=== PATIENT | female | born 1960 | race African-American/Black ===

== ENCOUNTER 2018-05-31 20:09 | Inpatient (IN) | payer OTHER, MEDICAID ==
[~2018-05-31] VITALS: Ht 154.9 cm; Wt 82.1 kg
--- NOTE | ~2018-05-31 | HEMODYNAMI ---
PATIENT:VICTOR MANUEL KWON MEDICAL RECORD: [id number] : 58 [id number] ADMISSION DATE: 05/31/18 Generatedon:06/02/201814:23 Patient name: VICTOR MANUEL KWON Patient #: [id number] SSN: : 1960 Date of study: 06/02/2018 Page: Of Hemodynamic Procedure Report Patient Data Patient Demographics Procedure consent was obtained First Name: VICTOR MANUEL Gender: Female Last Name: CHER : 1960 Patient #: [id number] Age: 57 year(s) Race: Black Additional ID: [id number] Contact details [address]: [address] [place] [address] [place] State: [place] City: [place] Zip code: [address] Past Medical History Allergies Allergen Reaction Date Comments Reported Codeine 06/02/2018 Admission Admission Data Admission Date: 05/31/2018 Admission Time: 22:07 Room #: D.2112 Lab Results Lab Result Date: 06/02/2018 Lab Result Time: 0:00 Biochemistry Name Units Result Min Max BUN mg/dl 35 --(----)-* 7 18 Creatinine mg/dl 1.9 --(----)-* 0.6 1.3 CBC Name Units Result Min Max Hemoglobin g/dl 11 *-(----)-- 13.5 17.5 Procedure Procedure Types Cath Procedure Diagnostic Procedure C [facility] w/Coronaries Cardioversion External Procedure Description Procedure Date Procedure Date: 06/02/2018 Procedure Start Time: 14:07 Procedure End Time: 14:18 Procedure Staff Name Function Patrick Jeronimo MD Performing Physician Charity Black RT Monitor Clyde Leone RT Scrub Phillip Parson RN Nurse Emiliano Brown CRNA Additional personnel Procedure Data Cath Procedure Fluoroscopy Diagnostic fluoroscopy Total fluoroscopy Time: 0.7 time: 0.7 min min Diagnostic fluoroscopy Total fluoroscopy dose: 170 dose: 170 mGy mGy Contrast Material Contrast Material Type Amount (ml) Isovue 300 49 Entry Location Entry Primary Successful Side Size Upsize Upsize Entry Closure Succes sful Closure Location (Fr) 1 (Fr) 2 (Fr) Remarks Device Remarks Femoral Right 5 Fr Exoseal artery Estimated blood loss: 5 ml Diagnostic catheters Device Type Used For End Catheter Placement MULTIPACK JL 4.0 5Fr Procedure catheter MULTIPACK 3DRC 5Fr Procedure catheter MULTIPACK Pigtail 5 Fr Procedure catheter Procedure Complications No complications Procedure Medications Medication Administration Route Dosage Oxygen etCO2 Nasal cannula 6 l/min Heparin Flush Bag added to field 1 bags (1000units/500ml NS) 0.9% NaCl I.V. 100 ml/hr Lidocaine 2% added to field 20 Refer to Anesthesia Notes for Sedation Medications Hemodynamics Rest HGB: 11 (g/dl) Heart Rate: 100 (bpm) Pressure Samples Time Site Value (mmHg) Purpose Heart Use Rate(bpm) 14:11 LV 70/18,16 Snapshot 92 Gradients Valve Time Site Site Mean SEP/DFP Peak To Heart Use 1 2 (mmHg) (sec/min) Peak Rate (mmHg) (bpm) Aortic 14:11 LV AO 83 Snapshots Pre Cath Intra NCS Post Cath Vital Signs Time Heart Resp SPO2 etCO2 NIBP Rhythm Pain Sedation Rate (ipm) (%) (mmHg) (mmHg) Status Level (bpm) 13:51:15 82 17 97 0 104/74(96) A-Fib 0 (11) 10(A) , No pain 13:55:27 115 16 100 9 99/88(92) A-Fib 0 (11) 10(A) , No pain 13:59:39 90 17 96 0 103/72(81) A-Fib 0 (11) 10(A) , No pain 14:03:51 88 17 100 0.7 94/76(82) A-Fib 0 (11) 10(A) , No pain 14:08:09 82 17 99 0 85/52(74) A-Fib 0 (11) 10(A) , No pain 14:12:21 73 16 96 0 83/51(74) A-Fib 0 (11) 10(A) , No pain 14:15:48 76 17 97 0 83/63(73) A-Fib 0 (11) 10(A) , No pain 14:19:35 81 19 98 0 81/44(63) A-Fib 0 (11) 10(A) , No pain 14:21:24 71 15 100 0 85/59(79) A-Fib 0 (11) 10(A) , No pain 14:23:12 79 16 100 0 86/34(59) A-Fib 0 (11) 10(A) , No pain Medications Time Medication Route Dose Verified Delivered Reason Notes Effe ctiveness by by 13:58:52 Oxygen etCO2 6 Patrick Phillip Per Nasal l/min St Noé Parson RN physician cannula 13:59:00 Heparin Flush added 1 Patrick Phillip used for Bag to bags St Noé Parson RN procedure (1000units/500ml field REZA NS) 13:59:09 0.9% NaCl I.V. 100 Patrick Phillip Per ml/hr St Noé Parson RN physician 13:59:34 Lidocaine 2% added 20ml Patrick Phillip Per to vial St Noé Parson RN physician field REZA 14:00:58 Refer to Patrick Phillip Per Anesthesia Notes St Noé Parson RN physician for Sedation Medications Procedure Log Time Note 13:20:48 Clyde Leone RT(R) sent for patient. Start room use. 13:24:15 Signed procedure consent form obtained from patient. 13:24:16 Diagnostic Cath status Elective 13:24:17 Time tracking: Regular hours (M-F 7:00 - 5:00) 13:24:20 Plan of Care:Hemodynamics will remain stable., Cardiac rhythm will remain stable., Comfort level will be maintained., Respiratory function will remain adequate., Patient/ family verbilizes understanding of procedure., Procedure tolerated without complication., Recovers from procedure without complications.. 13:30:23 Patient allergic to Codeine 13:30:31 H&P Date Dictated: 06/01/2018 Within 30 days and on chart.. 13:31:03 Lab Result : BUN 35 mg/dl 13:31:03 Lab Result : Creatinine 1.9 mg/dl 13:31:03 Lab Result : Hemoglobin 11 g/dl 13:37:21 Patient received from Med II to CCL 1 Alert and oriented. Tansferred to table in Supine position. 13:37:22 Warm blankets applied, and ramu hugger turned on for patient comfort. 13:37:22 Correct patient and procedure confirmed by team. 13:37:23 ECG and BP/O2 sat monitors applied to patient. 13:50:03 Vital chart was started 13:50:07 Baseline sample Acquired. 13:50:13 Rhythm: atrial fibrillation 13:50:14 Full Disclosure recording started 13:50:14 Pre-procedure instructions explained to patient. 13:50:15 Pre-op teaching completed and patient verbalized understanding. 13:50:17 Family in patients room. 13:50:23 Patient NPO since Midnight. 13:58:52 Oxygen 6 l/min etCO2 Nasal cannula was administered by Phillip Parson RN; Per physician; 13:59:00 Heparin Flush Bag (1000units/500ml NS) 1 bags added to field was administered by Phillip Parson RN; used for procedure; 13:59:09 0.9% NaCl 100 ml/hr I.V. was administered by Phillip Parson RN; Per physician; 13:59:34 Lidocaine 2% 20ml vial added to field was administered by Phillip Parson RN; Per physician; 14:00:58 Refer to Anesthesia Notes for Sedation Medications was administered by Phillip Parson RN; Per physician; 14:02:54 Is patient on blood thinner?No 14:02:54 Patient diabetic? Yes. 14:02:55 If diabetic: On Metformin? No 14:02:58 Patient not . Patient is over age 55. 14:03:00 Previous problem with sedation/anesthesia? No ? 14:03:01 Snore? Yes 14:03:03 Sleep apnea? No 14:03:04 Deviated septum? No 14:03:05 Opens mouth fully? Yes 14:03:05 Sticks out tongue? Yes 14:03:07 Airway obstruction? No ? 14:03:09 Dentures? No ? 14:03:12 Pre procedure: right dorsailis pedis pulse 1+ Palpable, but thready & weak; easily obliterated 14:03:22 unable to go radial due to IV placement 14:03:33 IV patent on arrival in right wrist with 0.9% NaCl at [facility]. 14:03:35 Lab results completed and on chart. 14:03:40 Right groin area was prepped with chlora-prep and draped in sterile fashion 14:03:41 Alarms reviewed by R. N. 14:03:41 Sharps counted by scrub and verified by R.N. 14:03:47 --------ALL STOP TIME OUT------ 14:03:47 Final Timeout: patient, procedure, and site verified with staff and physician. All members of the team are in agreement. 14:03:48 Right groin site verified by team. 14:03:51 Fire Safety Assessment: A--An alcohol-based skin anteseptic being used preoperatively., C--Open oxygen or nitrous oxide is being used., D--An ESU, laser, or fiber-optic light is being used. 14:03:53 Physical assessment completed. ASA score P 2 - A patient with mild systemic disease as per Patrick Jeronimo MD. 14:03:58 Sedation plan: TIVA Medication:Propofol 14:04:01 Use device set Femoral Dx 14:04:03 Zero performed for pressure channel P1 14:04:05 ACIST Syringe (12636) opened to sterile field. 14:04:06 Bag Decanter (2002S) opened to sterile field. 14:04:07 ACIST Hand Control (79036) opened to sterile field. 14:04:08 ACIST Manifold (26922) opened to sterile field. 14:04:08 Tegaderm 4 x 4 (1626W) opened to sterile field. 14:04:09 Medline Cath Pack ([id number]) opened to sterile field. 14:04:10 DIAGNOSTIC WIRE .035 260cm J wire (409847) opened to sterile field. 14:04:10 DIAGNOSTIC Multipack 5Fr catheter set ([id number]) opened to sterile field. 14:04:11 SHEATH 5FR Temple (KBO893) opened to sterile field. 14:04:55 Emiliano Brown CRNA present and monitoring patient for TIVA. 14:05:00 Procedure started. 14:05:10 Quick Combo opened to sterile field. 14:05:14 Quick combo pads placed on patients chest and back. 14:05:17 Defibrillator synced and charged to 200 Joules. 14:05:44 Shock delivered. 14:05:51 Unsuccessful cardioversion. 14:05:53 Defibrillator synced and charged to 300 Joules. 14:06:23 Unsuccessful cardioversion. 14:06:57 WILL PROCEED TO HEART CATH 14:07:03 Local anesthetic to right femoral artery with Lidocaine 2% by Patrick Jeronimo MD.INITIAL ACCESS ONLY 14:07:57 A 5 Fr sheath was inserted into the Right Femoral artery 14:08:36 A MULTIPACK JL 4.0 5Fr catheter was advanced over the wire and used for Procedure. 14:09:22 LCA angiography performed. 14:09:50 Catheter removed. 14:09:52 A MULTIPACK 3DRC 5Fr catheter was advanced over the wire and used for Procedure. 14:10:15 RCA angiography performed. 14:10:22 Catheter removed. 14:10:33 A MULTIPACK Pigtail 5 Fr catheter was advanced over the wire and used for Procedure. 14:11:00 LV gram done using JAMISON 14:11:10 Injector settings: Ml/sec: 10, Volume: 20, 14:11:21 LV hemodynamics recorded. 14:11:39 EF : 20 % 14:11:49 Catheter removed. 14:12:02 EXOSEAL 5Fr (EX500) opened to sterile field. 14:12:35 Sheath removed intact; hemostasis achieved with Exoseal to the Right Femoral artery. 14:12:38 Procedure ended.(Physican Out) 14:13:19 Fluoroscopy time 00.70 minutes. 14:13:29 Fluoroscopy dose: 170 mGy 14:13:29 Flurop Dose total: 170 14:13:32 Contrast amount:Isovue 300 49ml. 14:13:37 Sharps counted by scrub and verified by R.N. 14:13:40 Post-op/insertion site Right Femoral artery dressed using a 4 x 4 and Tegaderm. 14:13:43 Post-procedure physical assessment completed. ASA score P 2 - A patient with mild systemic disease as per Patrick Jeronimo MD. 14:13:50 Post procedure rhythm: unchanged. 14:13:52 Estimated blood loss: 5 ml 14:13:54 Post procedure instruction explained to patient.Patient verbalizes understanding. 14:13:55 Patient needs reinforcement of post procedure teaching. 14:15:29 Procedure and supply charges have been captured, reviewed, submitted and are correct. 14:15:31 Procedure Complication : No complications 14:15:38 See physician's report for complete and final results. 14:15:39 Report given to PCU. 14:15:42 Patient transfered to PCU with Bed. 14:18:18 Vital chart was stopped 14:18:20 Procedure ended. 14:18:20 Full Disclosure recording stopped 14:18:26 End room use (Document Last) Device Usage Item Name Manufacture Quantity Catalog Hospital Part Current Minima l Lot# / Number Charge Number Stock Stock Serial# Code ACELIZABETH Acist 1 35429 332278 819830 835487 20 Syringe Medical (76585) Systems Inc Bag Microtek 1 2001S 268951 69059 738999 5 Decanter Medical Inc. (2001S) ACIST Hand Acist 1 02064 831283 672191 421666 5 Control Medical (62542) Systems Inc ACIST Acist 1 10658 837780 816768 460035 5 Manifold Medical (20983) Systems Inc Tegaderm 4 3M 1 1626W 275971 225984 596114 5 x 4 (1626W) Medline Medline 1 [id number] 254529 38158 910965 5 Cath Pack ([id number]) DIAGNOSTIC St Jose Manuel 1 816087 325422 579499 506876 30 WIRE .035 260cm J wire (305705) DIAGNOSTIC Cardinal 1 YM5257 853875 83538 111568 30 Multipack Health 5Fr catheter set (YV9643) SHEATH 5FR Terumo 1 JJE690 458011 024850 496177 5 Temple (ANI017) Quick Combo [employer] Systems 1 80982-253148 592408 997793 559433 5 MULTIPACK Cardinal 1 489289 5 JL 4.0 5Fr Health catheter MULTIPACK Cardinal 1 035241 5 3DRC 5Fr Health catheter MULTIPACK Cardinal 1 953525 5 Pigtail 5 Health Fr catheter EXOSEAL 5Fr Cardinal 1 EX500 714911 729290 566328 10 (EX500) Health Signature Audit [place] Stage Time Signature Unsigned Intra-Procedure 06/02/2018 Charity Black 2:23:43 PM RT(R) Signatures Monitor : Charity Black Signature : RT Date : Time : [place] [id number] [place] [id number]
[2018-05-31] MEDS ORDERED: LIPITOR10 MG PO (20:15)
[2018-05-31] MEDS ORDERED: ASPIRIN81 MG PO (20:16)
[2018-05-31] MEDS ORDERED: LISINOPRIL5 MG PO (20:16)
[2018-05-31] MEDS ORDERED: RANITIDINE HCL150 M1 PO (20:16)
[2018-05-31] MEDS ORDERED: QVAR REDIHALE10.6 G1 INH (20:16)
[2018-05-31] MEDS ORDERED: CLARITIN 10 MG10 MG PO (20:16)
[2018-05-31] MEDS ORDERED: ELIQUIS5 MG PO (20:16)
[2018-05-31] MEDS ORDERED: NORVASC5 MG PO (20:17)
[2018-05-31] MEDS ORDERED: GLUCOPHAGE1000 MG PO (20:17)
[2018-05-31] MEDS ORDERED: BETAPACE 80 MG80 MG PO (20:17)
[2018-05-31] MEDS ORDERED: NEURONTIN600 MG PO (20:17)
[2018-05-31 20:49] LABS: BASOPHILS 0.2 % (0-2); EOSINOPHILS 0.9 % (0-7); HEMATOCRIT 34.2 % (36.0-48.0); HEMOGLOBIN 11.8 g/dL (12-16); IMMATURE GRANULOCYTES 0.1 % (0-5); LYMPHOCYTES 22.5 % (15-50); MCH 28.6 pg (26.0-34.0); MCHC 34.5 g/dL (31.0-37.0); MEAN PLATELET VOLUME 9.7 fL (7.4-10.4); MONOCYTES 10.5 % (2-11); NEUTROPHILS 65.8 % (40-80); PLATELET COUNT 197 10x3/uL (130-400); RBC 4.12 10x6/uL (4.00-5.40); RDW 17.1 % (11.5-14.5); WBC 9.3 10x3/uL (4.8-10.8)
[2018-05-31 20:58] LABS: APTT 37.6 SECONDS (22.8-39.4); INR 1.76 (0.85-1.17); PROTIME 19.9 SECONDS (11.6-15.0)
[2018-05-31 21:00] VITALS: BP 120/77
--- NOTE | 2018-05-31 21:00 | NUR ---
PT TRANSFERRED FROM [facility], [facility]. DENIES CHEST PAIN AT THIS TIME. CARDIZEM INFUSING AT 5MG , NS INFUSING AT 125ML.
[2018-05-31 21:04] LABS: ALBUMIN 3.2 g/dL (3.4-5.0); ALKALINE PHOSPHATASE 133 U/L (46-116); ALT (SGPT) 123 U/L (10-68); BILIRUBIN - TOTAL 2.53 mg/dL (0.2-1.3); CALC OSMOLALITY 290 mosm/kg (275-300); CALCIUM 8.7 mg/dL (8.5-10.1); CARBON DIOXIDE 19.3 mmol/L (21.0-32.0); CHLORIDE - SERUM 105 mmol/L (98-107); CREATININE - SERUM 2.1 mg/dL (0.6-1.3); GLUCOSE 100 mg/dL (74-106); POTASSIUM - SERUM 4.2 mmol/L (3.5-5.1); PROTEIN - SERUM 6.4 g/dL (6.4-8.2); SODIUM 142 mmol/L (136-145); UREA NITROGEN 36 mg/dL (7-18); eGFR NON AFRICAN AMERICAN 26 mL/min (90-120)
[2018-05-31 21:18] LABS: CREATINE KINASE 172 UL (21-215); MAGNESIUM - SERUM 1.7 mg/dL (1.8-2.4)
[2018-05-31 21:19] LABS: TROPONIN-I 0.185 ng/mL (0.000-0.060)
[2018-05-31 22:00] VITALS: BP 123/81
--- NOTE | 2018-05-31 22:40 | NUR ---
FAMILY TO BEDSIDE.
--- NOTE | 2018-05-31 23:20 | NUR ---
RECEIVED FROM ER VIA STRETCHER. ALERT/ORIENTED X 4. AMBULATED WITH STEADY GAIT. IV IN RT HAND WITH CARDIZEM AT 5ML/HR. REQUESTED A DIET SODA. FAMILY PRESENT IN ROOM. NO QUESTIONS OR CONCERNS VOICED.
[2018-06-01] VITALS (7 sets, daily range): BP systolic 116–132; BP diastolic 48–85; Ht 154.9 cm; Wt 82.1 kg
--- NOTE | 2018-06-01 00:30 | NUR ---
REQUESTED ANOTHER BLANKET. UNHOOKED FROM IV TO AMBULATE TO THE BATHROOM. NO OTHER NEEDS VOICED.
[2018-06-01 04:11] LABS: BASOPHILS 0.2 % (0-2); EOSINOPHILS 1.1 % (0-7); HEMATOCRIT 33.3 % (36.0-48.0); HEMOGLOBIN 11.2 g/dL (12-16); IMMATURE GRANULOCYTES 0.1 % (0-5); LYMPHOCYTES 17.2 % (15-50); MCHC 33.6 g/dL (31.0-37.0); MCV 83.3 fL (80.0-100.0); MONOCYTES 12.4 % (2-11); PLATELET COUNT 194 10x3/uL (130-400); RDW 17.1 % (11.5-14.5); WBC 8.4 10x3/uL (4.8-10.8)
[2018-06-01 04:57] LABS: ANION GAP 19.3 mmol/L (8-16); CALCIUM 8.4 mg/dL (8.5-10.1); CARBON DIOXIDE 21.7 mmol/L (21.0-32.0); CREATININE - SERUM 2.4 mg/dL (0.6-1.3); MAGNESIUM - SERUM 1.5 mg/dL (1.8-2.4); PHOSPHOROUS 4.7 mg/dL (2.5-4.9)
[2018-06-01 05:04] LABS: TROPONIN-I 0.146 ng/mL (0.000-0.060)
--- NOTE | 2018-06-01 05:48 | NUR ---
RESTING WITH EYES CLOSED, LYING ON LEFT SIDE SNORING LIGHTLY. RR EVEN U/L. HAS CL IN REACH.
--- NOTE | 2018-06-01 07:15 | NUR ---
MORNING ASSESSMENT COMPLETE. SEE ASSESSMENT FLWOSHET FOR FURTHER DETAILS. PT LYING IN BED AAO X4 TO PERSON, PLACE, TIME, AND SITUATION. DAUGHTER AT BEDSIDE. DENIES NEEDS AT THIS TIME. CL IN REACH
--- NOTE | 2018-06-01 09:08 | NUR ---
ROUNDING ON PATIENTS THIS AM. IN PATIENT CHART TO HELP ANSWER SOME QUESTIONS THE PATIENT AND FAMILY HAVE.
[2018-06-01 17:13] LABS: % SATURATION 7 % (15-55); IRON 22 ug/dl (35-150); TOTAL IRON BIND CAPACITY 277 ug/dl (260-445); UNSAT IRON BIND CAPACITY 255 ug/dl (150-375)
--- NOTE | 2018-06-01 20:01 | NUR ---
RESUMING CARE. PT LAYING IN BED A&O RT HAND IV RUNNING CARDIZEM DRIP @5 AND NS @100 NO C/O OF PAIN OR DISTRESS AT THIS TIME CALL IN REACH WILL CONT TO MONITOR
[2018-06-02] VITALS: BP 100/76
--- NOTE | 2018-06-02 04:05 | NUR ---
RN NOTE: PATIENT RESTING COMFORTABLY IN BED. RESPIRATIONS ARE EVEN AND UNLABORED. NO S/S OF DISTRESS. CALL LIGHT WITHIN REACH. WILL CPOC.
[2018-06-02 05:20] VITALS: BP 107/76
[2018-06-02 05:31] LABS: BASOPHILS 0.1 % (0-2); EOSINOPHILS 3.5 % (0-7); HEMATOCRIT 33.5 % (36.0-48.0); IMMATURE GRANULOCYTES 0.2 % (0-5); LYMPHOCYTES 17.1 % (15-50); MCH 27.9 pg (26.0-34.0); MCHC 32.8 g/dL (31.0-37.0); MEAN PLATELET VOLUME 9.7 fL (7.4-10.4); MONOCYTES 9.3 % (2-11); NEUTROPHILS 69.8 % (40-80); PLATELET COUNT 199 10x3/uL (130-400); RBC 3.94 10x6/uL (4.00-5.40); RDW 17.4 % (11.5-14.5); WBC 9.4 10x3/uL (4.8-10.8)
[2018-06-02 05:51] LABS: ANION GAP 14.3 mmol/L (8-16); CALCIUM 8.1 mg/dL (8.5-10.1); CARBON DIOXIDE 23.7 mmol/L (21.0-32.0); CREATININE - SERUM 1.9 mg/dL (0.6-1.3)
--- NOTE | 2018-06-02 07:28 | NUR ---
REPORT RECEIVED. WILL CONTINUE WITH POC. PT CURRENTLY LYING SEMI FOWLERS. CALL LIGHT W/I REACH. PT IS AAO AND UP AD STAN. RR EVEN AND UNLABORED ON RA. NS INFUSING @100ML/HR VIA R.HAND PIV. PT DENIES ANY NEEDS AT THIS TIME. WILL CTM.
--- NOTE | 2018-06-02 08:44 | NUR ---
RESTS IN BED WITHOUT NEEDS VOICED. IV PATENT. CALL LIGHT IN REACH.
[2018-06-02 11:03] VITALS: BP 116/60
[2018-06-02] MEDS ORDERED: COREG 3.1253.125 MG PO (14:43)
--- NOTE | 2018-06-02 14:47 | NUR ---
PT RETURNED FROM SYSTEMS SOFTWARE ENGINEER. RIGHT FEMORAL SITE IS C/D/I. NS INFUSING @200ML/HR VIA R.HAND PIV. RR EVEN AND UNLABORED ON RA. PERIPHERAL PULSES EVEN AND BILATERAL. WILL CTM. PT WILL LAY FLAT FOR 2 HOURS.
[2018-06-02] MEDS ORDERED: PROTONIX40 MG PO (14:48)
--- NOTE | 2018-06-02 17:01 | NUR ---
PT DISCHARGED HOME VIA WHEELCHAIR WITH FAMILY. PT SIGNED PROPER DISCHARGE INSTRUCTION AND REMOVED ALL VALUABLES FROM THE ROOM. PIV REMOVED WITH CATHETER TIP FULLY INTACT. TELEMETRY REMOVED AND RETURNED
--- NOTE | 2018-06-03 08:28 | MORECARE ---
CASE MANAGEMENT DISCHARGE SUMMARY PATIENT: VICTOR MANUEL KWON UNIT: [id number] ADM DATE: 05/31/18 AGE: 57 : 58 SEX: F ROOM/BED: D.2112 AUTHOR: CORBIN MARADIAGA PHYSICIAN: REFERRING PHYSICIAN: JOSEE GRISSOM MD DATE OF SERVICE: 06/03/18 Discharge Plan Patient Name: VICTOR MANUEL KWON Facility: [facility]:[place] : 1960 Planned Disposition: Home Anticipated Discharge Date: 06/02/18 Discharge Date: 06/02/2018 Expected LOS: 2 Initial Reviewer: [email or web address] Initial Review Date: 06/03/2018 Generated: 06/03/18 9:27 am Patient Name: VICTOR MANUEL KWON Page [phone] at 0828 All edits/amendments must be made on the electronic document DICTATION DATE: 06/03/18826 CAMPAIGN MANAGER: CAREY 06/03/18826 RPT#: [id number] DC DATE:06/02/18 STATUS: DIS IN [facility] [address] [place] [address] END OF REPORT
--- NOTE | 2018-06-03 09:01 | EC ---
PATIENT:VICTOR MANUEL KWON DATE OF SERVICE: 05/31/18 SEX: F MEDICAL RECORD: [id number] DATE OF : 58 LOCATION:D. D.211 AGE OF PATIENT: 57 ADMISSION DATE: 05/31/18 REFERRING PHYSICIAN: INTERPRETING PHYSICIAN: LELA NOE MD ECHOCARDIOGRAM REPORT ECHO CHARGES 4 ECHO COMPLETE Date: 06/01/18 CLINICAL DIAGNOSIS: CARDIOMEGALY, ELEVATED TROPONIN ECHOCARDIOGRAPHIC MEASUREMENTS (adult normal given) AC root (d.<3.7cm) 2.8 cm LV Septum d (<1.2 cm> 1.2 cm Valve Excursion 1.4 cm LV Septum (systole) 1.4 cm Left Atria (s.<4.0cm> 4.5 cm LVPW d(<1.2cm) 1.1 cm RV (d.<2.3cm) 4.8 cm LVPW (sytole) 1.6 cm LV diastole(<5.6CM) 6.5 cm MV E-F(>70mm/sec) cm LV systole 5.2 cm LVOT Diameter 2.0 cm MV exc.(>10mm) 2.0 cm Est.ejection fraction (50-75%) % DOPPLER: LVIT cm/sec A 35.0 cm/sec E 109 cm/sec LA cm/sec RVSP 50 mmHg LVOT 91 cm/sec AOP1/2T m/s Asc. Ao 200 cm/sec RVOT 69 cm/sec RA cm/sec PA 109 cm/sec AV Gradient Peak 16.0 mmHg AV Mean 8.99 mmHg AV Area 1.4 cm MV Gradient Peak 7.55 mmHg MV Mean 2.31 mmHg MV Area cm COMMENTS: Gas Engine Operator Generators: 2 SAIRA JENKINS Inter Fold Roll Cutter: 3 Dr. [place] TAPE# PACS Pericardial Effusion N DATE OF SERVICE: Adequate 2-D echo, color flow and spectral Doppler, and M-mode. Borderline LVH. LV internal dimension is dilated. Difficult to fully assess focal wall motion secondary to atrial fibrillation and variable R-R intervals. Overall, LV function appears to be mildly reduced at 35% to 40%. Aortic valve sclerosis without stenosis by Doppler interrogation. Left atrium is dilated at 4.5 cm. Mitral valve is thickened. Avbf-ov-pwpzjdch MR. Right-sided chambers appear upper limits of normal, mildly dilated. Fwekjbdy-oa-udstgk TR by color ECHOCARDIOGRAM REPORT [id number] VICTOR MANUEL KWON flow imaging. RV systolic pressure is estimated at greater than or equal to 50 mmHg via the continuity equation. TRANSINT:[id number] Voice Confirmation ID: [id number] DOCUMENT ID: [id number] LELA NOE MD at 0901 CC: [id number] DICTATION DATE: 06/01/18 1354 BULLET LUBRICATING MACHINE OPERATOR: 06/01/18 1510 DIS IN 06/02/18 [place] [id number] [place] [address]
--- NOTE | 2018-06-03 09:01 | CN ---
PATIENT NAME:VICTOR MANUEL KWON MEDICAL RECORD: [id number] : 58 LOCATION:DR[facility]na D.2 ADMIT DATE: 05/31/18 ACCOUNT: [id number] CONSULTING PHYSICIAN: LELA NOE MD REFERRING PHYSICIAN: JOSEE GRISSOM MD DATE OF CONSULTATION: 06/01/2018 HISTORY OF PRESENT ILLNESS: A 57-year-old female transferred from outside hospital with a history of atrial fibrillation, worsening renal insufficiency and acute coronary artery syndrome. Symptoms began approximately 2 to 3 days ago and was transferred from [place] for higher level of care. She has never been cardioverted, remains on Eliquis for cerebrovascular accident prophylaxis. PAST MEDICAL HISTORY: 1. Otherwise includes a history of atrial fibrillation. 2. Hypertension. 3. Dyslipidemia. 4. Diabetes mellitus. MEDICATIONS: Include Glucophage 1 gram b.i.d.; Zantac 150 b.i.d.; Neurontin 600 t.i.d.; aspirin 81 every day; amlodipine 5 every day; Betapace 80 b.i.d.; lisinopril 5 every day; atorvastatin 10 daily; Eliquis 5 b.i.d. ALLERGIES: CODEINE. SOCIAL HISTORY: Lives at home. She is nonsmoker, nondrinker. She takes care of all her ADLs. Does try to walk on a regular basis. REVIEW OF SYSTEMS: The patient reports easy bruising but reports no swollen glands. The patient reports no fever, no night sweats, no significant weight gain, no significant weight loss. No significant exercise tolerance. The patient reports no dry eyes, no irritation, no vision change. Patient reports no difficulty hearing and no ear pain. Patient reports no frequent nose bleeds or nose and sinus problems. Patient reports on arm pain on exertion. No shortness of breath while lying down. No history of heart murmur. Patient reports no cough, no wheezing or coughing up blood. Patient reports no abdominal pain, no vomiting. Normal appetite. No diarrhea and not vomiting blood. No nausea and no constipation. Patient reports no incontinence. No difficulty urinating. No hematuria. No increased frequency. Patient reports no muscle aches. No weakness, no arthralgias, no back pain. No swelling of the extremities. Patient reports no abnormal mole, no jaundice, no rashes. Reports no loss of consciousness. No weakness and no numbness. No seizures, dizziness, or headaches. The patient reports no depression, no sleep disturbance, feeling safe in a relationship and no alcohol abuse. Patient reports on fatigue. Reports no runny nose or sinus pressure. No itching, no hives, and no frequent sneezing. PHYSICAL EXAMINATION: GENERAL: Pleasant female, appears stated age, in no acute distress. VITAL SIGNS: Blood pressure 125/84, pulse 76 and irregular. HEENT: Normocephalic, atraumatic. NECK: No bruits noted. HEART: Regular, rate controlled. There is II/ systolic ejection murmur. LUNGS: Fairly good air excursion. ABDOMEN: Soft, nontender. CONSULT REPORT [id number] VICTOR MANUEL KWON EXTREMITIES: Pulses 2+. No edema. DIAGNOSTIC DATA: ECG shows atrial fibrillation, ST-T changes diffusely. IMPRESSION: Atrial fibrillation, rates are better controlled. Has been on Eliquis at this point in time. Given elevated enzymes, plan for catheterization cardioversion, would like to hydrate and let metformin as well as Eliquis were off at this point. Further recommendations based on above. TRANSINT:[id number] Voice Confirmation ID: [id number] DOCUMENT ID: [id number] LELA NOE MD at 0901 CC: [id number] DICTATION DATE: 06/01/18832 DEVELOPMENT MGR: 06/01/18 1022 DIS IN 06/02/18 [place] [id number] [place] [address]
--- NOTE | 2018-06-03 09:01 | OP ---
PATIENT NAME: VICTOR MANUEL KWON MEDICAL RECORD: [id number] :58 LOCATION:D.M2 D.2 ADMISSION DATE:05/31/18 SURGEON: LELA NOE MD DATE OF OPERATION: 06/02/2018 PROCEDURE: Left heart catheterization, cardioversion, right femoral artery approach. CATHETERS: A 5-Greek sheath, 5/4 left and right Virgil, 5/4 pig. The procedure was well tolerated and the patient was returned to laboy. Sheath was removed. ExoSeal device was placed. CARDIOVERSION: After general sedation via TIVA via anesthesia, a single synchronized shock at 200 and then further shock at 300 joules was not successful in converting atrial fibrillation to normal sinus rhythm. FINDINGS: Left ventriculography in 30-degree JAMISON view shows global hypokinesis. Reduced EF of 25%. CORONARY ANATOMY: LEFT MAIN: Left main is free of disease. LAD: Free of disease in the diagonal system. CIRCUMFLEX: Free of disease in the marginal system. RIGHT CORONARY ARTERY: Dominant artery, gives rise to PDA, free of disease. IMPRESSION: Nonischemic cardiomyopathy, questionable tachy mediated from atrial fibrillation. Continue rate control efforts as well as NOAC. TRANSINT:[id number] Voice Confirmation ID: [id number] DOCUMENT ID: [id number] LELA NOE MD at 0901 CC: [id number] DICTATION DATE: 06/02/18 142 BOILER MAKER: 06/02/18 1544 DIS IN 06/02/18 [facility] [address] [place] [address]
== END 2018-06-02 17:01 | disposition home or self-care (01) | DRG 287 ==
LOC: D.ER 20:09 → D.M2 22:07
PROVIDERS: Family Medicine; Internal Medicine Interventional Cardiology; ADMIT Internal Medicine Nephrology
PROC: 4A023N7 Measurement of Cardiac Sampling and Pressure, Left Heart, Percutaneous Approach (ICD-10-PCS; 2018-06-02)
PROC: B2111ZZ Fluoroscopy of Multiple Coronary Arteries using Low Osmolar Contrast (ICD-10-PCS; principal; 2018-06-02 14:00)
PROC: B2151ZZ Fluoroscopy of Left Heart using Low Osmolar Contrast (ICD-10-PCS; 2018-06-02 14:00)
DX: I48.91 Unspecified atrial fibrillation (principal); N17.9 Acute kidney failure, unspecified; I10 Essential (primary) hypertension; E78.5 Hyperlipidemia, unspecified; E11.9 Type 2 diabetes mellitus without complications; E83.42 Hypomagnesemia; R74.0 Nonspecific elevation of levels of transaminase and lactic acid dehydrogenase [LDH]; J20.9 Acute bronchitis, unspecified; D64.9 Anemia, unspecified

== ENCOUNTER 2018-06-05 10:39 | Emergency (ER) | payer OTHER, MEDICAID ==
[~2018-06-05] VITALS: Ht 154.9 cm; Wt 82.3 kg
[~2018-06-05 10:39] MED LIST: ASPIRIN81 MG PO; BETAPACE 80 MG80 MG PO; CLARITIN 10 MG10 MG PO; COREG 3.1253.125 MG PO; ELIQUIS5 MG PO; GLUCOPHAGE1000 MG PO; LIPITOR10 MG PO; LISINOPRIL5 MG PO; NEURONTIN600 MG PO; NORVASC5 MG PO; PROTONIX40 MG PO; QVAR REDIHALE10.6 G1 INH; RANITIDINE HCL150 M1 PO
[2018-06-05 10:55] VITALS: Ht 154.9 cm; Wt 82.3 kg
[2018-06-05] MEDS ORDERED: TOPROL XL50 MG PO (11:02)
[2018-06-05 11:43] LABS: BASOPHILS 0.3 % (0-2); EOSINOPHILS 1.3 % (0-7); HEMATOCRIT 35.3 % (36.0-48.0); HEMOGLOBIN 11.7 g/dL (12-16); IMMATURE GRANULOCYTES 0.3 % (0-5); LYMPHOCYTES 11.2 % (15-50); MCHC 33.1 g/dL (31.0-37.0); MCV 84.4 fL (80.0-100.0); MEAN PLATELET VOLUME 9.5 fL (7.4-10.4); MONOCYTES 6.6 % (2-11); NEUTROPHILS 80.3 % (40-80); PLATELET COUNT 227 10x3/uL (130-400); RBC 4.18 10x6/uL (4.00-5.40); RDW 17.4 % (11.5-14.5); WBC 6.8 10x3/uL (4.8-10.8)
[2018-06-05 11:54] LABS: ANION GAP 15.5 mmol/L (8-16); BILIRUBIN - TOTAL 1.18 mg/dL (0.2-1.3); CALCIUM 8.5 mg/dL (8.5-10.1); CARBON DIOXIDE 23.4 mmol/L (21.0-32.0); CREATININE - SERUM 1.7 mg/dL (0.6-1.3); POTASSIUM - SERUM 3.9 mmol/L (3.5-5.1); PROTEIN - SERUM 6.6 g/dL (6.4-8.2)
[2018-06-05 12:24] VITALS: BP 144/60
== END 2018-06-05 12:26 | disposition home or self-care (01) ==
LOC: D.ER 10:39
PROVIDERS: Family Medicine
DX: T50.995A Adverse effect of other drugs, medicaments and biological substances, initial encounter (principal); Y92.019 Unspecified place in single-family (private) house as the place of occurrence of the external cause; E11.9 Type 2 diabetes mellitus without complications